=== PATIENT | male | born 1985 | race Hispanic/Latino ===

== ENCOUNTER 2017-01-19 09:16 | Emergency (ER) | payer OTHER ==
[~2017-01-19] VITALS: Ht 167.6 cm; Wt 80.0 kg
[~2017-01-19 09:16] MED LIST: LORTAB 5/3255 MG PO; OXYCODONE HCL15 MG PO; PRILOSEC10 MG PO; ULTRAM50 M1 PO
[2017-01-19 10:46] LABS: INFLUENZA A NONE DETECTED (NONE DETECT); INFLUENZA B NONE DETECTED (NONE DETECT)
[2017-01-19 10:47] LABS: HEMATOCRIT 51.6 % (39.0-50.0); HEMOGLOBIN 17.9 g/dl (14.0-18.0); IMMATURE GRANULOCYTES 0.4 % (0.0-1.0); MEAN CELL VOLUME 89.3 fL CALC (80.0-100.0); MEAN CORPUSCULAR HGB CONC 34.7 g/L CALC (32.0-36.0); NEUT# 8.74 thou/uL (1.82-7.42); RED BLOOD COUNT 5.78 mill/uL (4.70-6.10); RED CELL DISTRI WIDTH 11.8 % (11.5-15.5)
[2017-01-19 10:51] LABS: ALBUMIN 5.3 g/dL (3.2-5.0); ALKALINE PHOSPHATASE 72 u/l (38-126); ANION GAP 20 (6-22 (CALC)); BILIRUBIN, TOTAL 1.8 mg/dL (0.0-1.4); BUN 12 mg/dL (9-20); BUN/CREATININE RATIO 11 (12-20 (CALC)); CALCIUM 10.1 mg/dL (8.4-10.2); CARBON DIOXIDE 28 mmol/l (22-30); CHLORIDE 96 mmol/l (95-108); GFR > 60 ML/MIN (>=60 (CALC)); GFR FOR AFR.AMER. > 60 ML/MIN (>=60 (CALC)); GLUCOSE 113 mg/dL (75-110); POTASSIUM 4.3 mmol/l (3.5-5.1); SGOT/AST 36 u/l (17-59); SGPT/ALT 62 u/l (21-72); SODIUM 140 mmol/l (137-146)
[2017-01-19] MEDS ORDERED: CIPROFLOXACN500 MG PO (11:39)
[2017-01-19] MEDS ORDERED: ZOFRAN ODT4 MG PO (11:39)
[2017-01-19] MEDS ORDERED: METRONIDAZOL500 MG PO (11:39)
[2017-01-19 11:41] VITALS: BP 122/80
[2017-01-19 11:44] LABS: URINE BLOOD DIPSTICK TRACE-LYSED (NEGATIVE); URINE CLARITY CLEAR; URINE COLOR YELLOW; URINE GLUCOSE - DIPSTICK NEGATIVE (NEGATIVE); URINE KETONE NEGATIVE (NEGATIVE); URINE LEUK ESTERASE NEGATIVE (NEGATIVE); URINE PROTEIN - DIPSTICK 30 mg/dL (NEG-TRACE); URINE UROBILINOGEN - DIPSTICK 0.2 E.U./dL (0.2)
[2017-01-19 11:47] LABS: URINE BILIRUBIN - DIPSTICK NEGATIVE (NEGATIVE)
[2017-01-19 11:55] LABS: URINE NITRITE - DIPSTICK NEGATIVE (Negative); URINE RBC 0-2 RBC/hpf (0-5)
== END 2017-01-19 12:09 | disposition home or self-care (01) | DRG 392 ==
LOC: ED 09:16
PROVIDERS: Emergency Medicine
DX: K52.9 Noninfective gastroenteritis and colitis, unspecified (principal); J02.0 Streptococcal pharyngitis

== ENCOUNTER 2020-03-25 08:23 | Emergency (ER) | payer OTHER ==
[~2020-03-25] VITALS: Ht 167.6 cm; Wt 81.0 kg
[~2020-03-25 08:23] MED LIST changes: +CIPRO XR500 M1 OR; +CIPROFLOXACN500 MG PO; +DOXYCYC MONO100 MG; +METRONIDAZOL500 MG PO; +NO HOME MEDS; +PERCOCET 5/325M1 TAB PO; +PRILOSEC20 MG PO; +RAPAFLO8 MG; +ZOFRAN ODT4 MG PO
[2020-03-25 09:12] LABS: HEMATOCRIT 47.5 % (39.0-50.0); HEMOGLOBIN 16.1 g/dl (14.0-18.0); IMMATURE GRANULOCYTES 0.2 % (0.0-5.0); MEAN CELL VOLUME 88.6 fL CALC (80.0-100.0); MEAN CORPUSCULAR HGB CONC 33.9 g/dL CAL (32.0-36.0); NEUT# 3.71 thou/uL (1.82-7.42); RED BLOOD COUNT 5.36 mill/uL (4.70-6.10); RED CELL DISTRI WIDTH 11.9 % (11.5-15.5)
[2020-03-25 09:20] LABS: URINE BILIRUBIN - DIPSTICK NEGATIVE (NEGATIVE); URINE BLOOD DIPSTICK NEGATIVE (NEGATIVE); URINE COLOR YELLOW; URINE GLUCOSE - DIPSTICK NEGATIVE (NEGATIVE); URINE KETONE NEGATIVE (NEGATIVE); URINE LEUK ESTERASE NEGATIVE (NEGATIVE); URINE NITRITE - DIPSTICK NEGATIVE (Negative); URINE PROTEIN - DIPSTICK NEGATIVE (NEG-TRACE); URINE SPECIFIC GRAVITY 1.025; URINE UROBILINOGEN - DIPSTICK 0.2 E.U./dL (0.2)
[2020-03-25 09:26] LABS: ALBUMIN 4.7 g/dL (3.2-5.0); ALKALINE PHOSPHATASE 78 u/l (38-126); AMYLASE 102 u/l (30-110); ANION GAP 11 (6-22 (CALC)); BUN 15 mg/dL (9-20); BUN/CREATININE RATIO 18 (12-20 (CALC)); CARBON DIOXIDE 27 mmol/l (22-30); CHLORIDE 103 mmol/l (95-108); CREATININE 0.8 mg/dL (0.7-1.3); GFR > 60 ML/MIN (>=60 (CALC)); GFR FOR AFR.AMER. > 60 ML/MIN (>=60 (CALC)); LIPASE 74 u/l (23-300); POTASSIUM 3.7 mmol/l (3.5-5.1); SGOT/AST 48 u/l (17-59); SODIUM 138 mmol/l (137-146); TOTAL PROTEIN 7.8 g/dL (6.3-8.2)
[2020-03-25] MEDS ORDERED: PROTONIX40 M2 PO (11:28)
[2020-03-25] MEDS ORDERED: ZOFRAN4 MG/TAB PO (11:28)
[2020-03-25 11:35] VITALS: BP 105/70
== END 2020-03-25 11:40 | disposition home or self-care (01) | DRG 392 ==
LOC: ED 08:23
DX: R10.11 Right upper quadrant pain (principal); R10.12 Left upper quadrant pain; R11.2 Nausea with vomiting, unspecified; R19.7 Diarrhea, unspecified; K21.9 Gastro-esophageal reflux disease without esophagitis; K29.70 Gastritis, unspecified, without bleeding; Z86.19 Personal history of other infectious and parasitic diseases
CPT/HCPCS: Q9967; S0164

== ENCOUNTER 2023-03-22 19:23 | Emergency (ER) | payer SELFPAY ==
[~2023-03-22] VITALS: Ht 167.6 cm; Wt 175.0 kg
[~2023-03-22 19:23] MED LIST changes: +PROTONIX40 M2 PO; +ZOFRAN4 MG/TAB PO
[2023-03-22 19:30] VITALS: BP 116/78
[2023-03-22 19:45] VITALS: BP 117/75
[2023-03-22 20:00] VITALS: BP 107/74
[2023-03-22 20:29] LABS: BASO% 0.4 % (0-3); EOS% 1.7 % (0-8); HEMATOCRIT 41.9 % (39.0-50.0); IMMATURE GRANULOCYTES 0.4 % (0.0-5.0); LYMPH% 43.4 % (15-41); MEAN CELL VOLUME 90.9 fL CALC (80.0-100.0); MEAN CORPUSCULAR HGB 30.2 pG CALC (26.0-32.0); MEAN CORPUSCULAR HGB CONC 33.2 g/dL CAL (32.0-36.0); MONO% 7.8 % (2-13); NEUT# 3.78 thou/uL (1.82-7.42); NEUT% 46.3 % (42-76); RED BLOOD COUNT 4.61 mill/uL (4.70-6.10); RED CELL DISTRI WIDTH 11.4 % (11.5-15.5)
[2023-03-22 20:30] LABS: HEMOGLOBIN 13.9 g/dl (14.0-18.0)
[2023-03-22 20:44] LABS: ALKALINE PHOSPHATASE 100 u/l (38-126); ANION GAP 8 (6-22 (CALC)); BILIRUBIN, TOTAL 0.4 mg/dL (0.2-1.3); BUN 16 mg/dL (9-20); BUN/CREATININE RATIO 17 (12-20 (CALC)); CARBON DIOXIDE 29 mmol/l (22-30); CHLORIDE 103 mmol/l (95-108); CREATININE 0.9 mg/dL (0.7-1.3); GFR FOR AFR.AMER. > 60 ML/MIN (>=60 (CALC)); GFR OTHER RACES > 60 ML/MIN (>=60 (CALC)); POTASSIUM 3.6 mmol/l (3.5-5.1); SGOT/AST 47 u/l (17-59); SODIUM 137 mmol/l (137-146); TOTAL PROTEIN 6.9 g/dL (6.3-8.2)
[2023-03-22 20:45] LABS: ALBUMIN 3.6 g/dL (3.2-5.0)
[2023-03-22] MEDS ORDERED: ULTRAM50 MG PO (22:34)
[2023-03-22 23:03] VITALS: BP 107/74
== END 2023-03-22 23:20 | disposition home or self-care (01) | DRG 313 ==
LOC: ED 19:23
PROVIDERS: Emergency Medicine
DX: R07.89 Other chest pain (principal); J21.9 Acute bronchiolitis, unspecified; K29.70 Gastritis, unspecified, without bleeding; Z86.16 Personal history of COVID-19
CPT/HCPCS: Q9967